=== PATIENT | male | born 1970 | race Caucasian/White ===

== ENCOUNTER 2025-04-13 09:29 | Emergency (ER) | payer SELFPAY ==
[2025-04-13 09:33] VITALS: BP 156/97
--- NOTE | 2025-04-13 10:25 | ED.GENMED ---
History of Present Illness
General
Chief Complaint: Back Pain
Source: patient
Time Seen by Provider: 04/13/25 10:15
History of Present Illness
History of Present Illness:
55-year-old male 2 weeks of low back pain. Slightly more to the right. No distal numbness tingling or weakness. No bowel or bladder issues. No fever or chills. History of chronic back issues. Patient moved here from [place] 3 weeks ago.
[place] it might be related to lifting boxes
Past History
Past History
ED Past Medical History: Cancer and Other (Back issues)
ED Past Surgical History: Bowel resection
Review of Systems
Review of Systems
All Other Systems: Not applicable
Constitutional: Denies fever or chills
: Denies incontinence
Neurological: Denies weakness or numbness
Phy Exam
Physical Exam
Physical Exam:
GENERAL: Alert and oriented in no apparent distress. Patient bearing full weight to ambulate. Slightly slow ambulating and slightly hunched over
EYE: Orbits normal.
NECK: Supple
CARDIAC: Regular rate and rhythm without any obvious murmurs.
LUNGS: Clear breath sounds,normal
ABDOMEN: Soft, without focal tenderness or distention
NEUROLOGICAL: Alert and oriented , grossly non-focal. Good distal strength. Low back pain with straight leg raising. No pain shooting down the legs. No lower extremity weakness. Patellar reflexes equal bilaterally.
SKIN: Warm and dry, no rash or lesion, no discoloration, skin intact.
MUSCULOSKELETAL: No edema,no deformity.Good color. Mild lumbar paralumbar tenderness. No swelling no erythema
PSYCH: Normal and appropriate interaction.
Course
Orders/Labs/Results
Orders:
Orders
04/13/25 10:24
Ketorolac [Toradol] 60 mg IM NOW STA
Oxycodone/Acetaminophen [Percocet 5/325] 1 tablet PO NOW STA
Lumbar Spine Complete, 4 View [CR Lumbar Spine Comp Min 4 Vw*] Urgent
Comment:
Reason For Exam: Low back pain. Spondylolysis
04/13/25 10:29
Prednisone [Deltasone] 50 mg PO NOW STA
Vital Signs
Initial and Last Documented VS:
Initial Vital Signs
Temp Pulse Resp BP Pulse Ox
98 F 61 16 156/97 97
04/13/25 09:33 04/13/25 09:04/13/25 09:04/13/25 09:33 04/13/25 09:33
Last Documented Vital Signs
Temp Pulse Resp BP Pulse Ox
98 F 61 16 156/97 97
04/13/25 09:04/13/25 09:04/13/25 09:04/13/25 09:04/13/25 10:28
MDM/Problems Addressed
Differential Diagnosis Includes:
Low back pain. Neurologically stable. Nothing to support infectious issue. No need for emergent radiologic imaging. We will get x-ray because of a spondylolysis history. Pain management and follow-up. Patient has no allergy to NSAIDs. He does
not take them because of a concern for gastritis history. I did discuss 1 shot of Toradol for pain. Will give him a small dose of Percocet. Steroids. Pain management follow-up
*Radiology
Radiology exam reviewed: preliminary read by ED provider (No acute findings)
*Pulse Oximetry
SaO2: 97
Oxygen Mode of Delivery: Room air
Patient hypoxic: no
*Critical Care Note
Total Time (30-74mins, 75-104mins- exclusive of procedures): Not Applicable
Update Note
Update Note:
Patient medically stable. Will give a small course of oxycodone. Prednisone and follow-up
ED Attending Note
-
Portions of this chart may have been created with voice recognition software.� Occasional wrong word or��sound alike� substitutions may have occurred due to the inherent limitations of voice recognition software.
Discharge Plan
Departure
Patient Disposition: Home (Routine Discharge)
Date of Disposition: 04/13/25
Time of Disposition: 12:34
Patient with high blood pressure during this ER visit?: Yes
Discharge Problem:
Low back pain, History of spondylolysis
Instructions: Low Back Pain (DC), BLOOD PRESSURE
Prescriptions:
New
methylprednisolone [Medrol (Eddi)] 4 mg tablets,dose pack
See Rx Instructions .ROUTE .COMPLEX Qty: 21 0RF
Rx Instructions:
orally per package directions
oxycodone 5 mg capsule
5 mg PO Q8H PRN (Reason: Pain) Qty: 7 0RF
Referrals:
Delfino Clark MD [Active, Anesthesiology] - Next open appointment
NONE,* [Family Provider, Internal Medicine]
Activity Restrictions/Additional Instructions:
The prescriptions were sent to your pharmacy
Start the prednisone tomorrow I would prefer you stick to Tylenol for pain. Only use the oxycodone if the pain is more severe
Interventions
Interventions:
*Risk Screen - Suicide Last Done: 04/13/25 09:34
*General Assessment Last Done: 04/13/25 11:03
*Neglect/Abuse Screening Last Done: 04/13/25 09:34
*ED- Fall Risk Assessment Last Done: 04/13/25 11:03
*ED COVID-19 Vaccine History Last Done: 04/13/25 11:03
ED-Musculoskeletal Assessment Last Done: 04/13/25 11:03
Discharge Date and Time
Print Language: [id number]
[2025-04-13] MEDS: DELTASONE 50 MG PO (10:54)
[2025-04-13] MEDS: PERCOCET 5/325 1 TABLET PO (10:54)
[2025-04-13] MEDS: TORADOL 60 MG IM (10:54)
[2025-04-13 12:40] VITALS: BP 156/89
== END 2025-04-13 12:45 | disposition home or self-care (01) ==
LOC: EMR 09:29
PROVIDERS: EMERGENCY PHYSICIAN Emergency Medicine
DX: M54.50 Low back pain, unspecified (principal); M43.00 Spondylolysis, site unspecified
CPT/HCPCS: 99283; 96372; 72110